=== PATIENT | female | born 1990 | race Caucasian/White ===

== ENCOUNTER 2020-08-28 08:41 | Outpatient (CLI) | payer OTHER, SELFPAY ==
--- NOTE | 2020-08-28 | CT_ITS ---
WS: [id number] CT scan of the abdomen and pelvis without Oral and IV contrast. Additional two-dimensional coronal an d sagittal reconstruction was performed. 08/28/2020 Clinical Data: LT FLANK PAIN Comparison: CT abdomen and pelvis, 06/28/2018. DLP: 1222.[address] scans at [facility] use at least one of these dose optimization techniques: automat ed exposure control; mA and/or kV adjustment per patient size (includes targeted exams where dose is matched to clinical indication); or iterative reconstruction. Findings: The lower lungs show no nodules, masses or effusions. The liver, gallbladder, spleen, adrenal glands and pancreas are normal. Right kidney has several stones, the largest now 1.6 cm, but they are nonobstructing. The left kidne y and left ureter show no calculi. No renal cysts, masses or hydronephrosis is seen. The abdominal aorta is normal in size. No appendicitis or diverticulitis is seen. The stomach, small bowel and colon are not remarkable. No abscess, adenopathy, ascites, mass, obstruction or free air is seen. The bladder is unremarkable. The uterus has several calcifications. No inguinal hernia is seen. The bones of the lower thorax, lumbar spine, pelvis, and hips are normal. CT/CT kidney stone [id number] Impression: 1. Negative for left renal or ureteral calcifications. 2. Right renal calcifications, the largest is 1.6 cm. 3. Negative for acute intra-abdominal or pelvic abnormalities.
== END 2020-08-28 08:42 | disposition home or self-care (01) ==
PROVIDERS: PCP Family Medicine; Visit Provider Family Medicine
DX: R10.9 Unspecified abdominal pain (principal); R31.0 Gross hematuria; N20.0 Calculus of kidney
CPT/HCPCS: 74176